=== PATIENT | female | born 1940 | race African-American/Black ===

== ENCOUNTER → 2022-09-05 06:00 | Outpatient (CLI) | payer OTHER ==
[~2022-09-05] VITALS: Ht 180.3 cm; Wt 108.9 kg
[~2022-09-05 06:00] MED LIST: CARVEDILOL25 M1 PO; CATAFLAM50 MG PO; CIPRO750 MG PO; COZAAR100 MG PO; GABAPENTIN100 MG PO; LASIX20 MG PO; NORVASC5 MG PO; ORPH100T PO; PERCOCET 5/3251 TAB PO; VASOTEC5 MG PO; XARELTO10 MG PO
== END | disposition home or self-care (01) ==
LOC: LAB 06:00 → SURG 09-10 08:45 → EDSTATUS 09-10 08:45 → SURG 09-10 10:00
PROVIDERS: ATTEND Orthopaedic Surgery
DX: Z20.828 Contact with and (suspected) exposure to other viral communicable diseases (principal); Z03.818 Encounter for observation for suspected exposure to other biological agents ruled out; R07.9 Chest pain, unspecified; I10 Essential (primary) hypertension